=== PATIENT | female | born 1995 | race Caucasian/White ===

== ENCOUNTER 2017-02-14 23:25 | Emergency (ER) | payer OTHER ==
[~2017-02-14] VITALS: Ht 160 cm; Wt 49.9 kg
[~2017-02-14 23:25] MED LIST: BENTYL20 MG PO; CIPRO500 MG PO; MACROBID100 MG PO; MOTRIN600 MG PO; OXYCODONE-ACET1 EACH PO; PHENERGAN25 MG PR; PROZAC WEEKLY 990 MG PO; RAPAFLO4 MG PO; REGLAN10 MG PO; VICODIN 5-3001 EACH PO; ZOFRAN4 MG PO; ZOLOFT50 MG PO
[2017-02-15 00:19] LABS: HEMATOCRIT 41.6 % (36.0-46.0); MCH 30.1 PG (29.0-34.0); MCHC 33.4 G/DL (30.0-36.0); MEAN PLAT.VOLUME 9.8 uM^3 (9.5-12.4); PLATELET COUNT 293 K/uL (156-360); RBC DIS.WIDTH-CV 12.8 % (11.8-14.6); RBC DIS.WIDTH-SD 42.2 % (39-53); RED BLOOD COUNT 4.62 M/uL (3.80-5.20); WHITE BLOOD COUNT 8.1 K/uL (4.1-10.2)
[2017-02-15 00:22] LABS: CHLORIDE 109 mEq/L (99-109); POTASSIUM 3.9 mEq/L (3.7-5.4); SODIUM 142 mEq/L (136-147)
[2017-02-15 00:23] LABS: GLUCOSE 119 mg/dL (70-99)
[2017-02-15 00:25] LABS: ANION GAP 10 MEQ/L (2-14)
[2017-02-15 00:27] LABS: GFR ESTIMATE (CALCULATED) > 59 mL/min/
[2017-02-15 00:28] LABS: UREA NITROGEN (BUN) 13 mg/dL (9-23)
[2017-02-15 00:57] LABS: ADD MIUA? YES; BILIRUBIN NEGATIVE; BLOOD NEGATIVE; COLOR YELLOW ((YELLOW)); GLUCOSE (STRIP) NEGATIVE; KETONES 20; LEUKOCYTES NEGATIVE; NITRITE NEGATIVE; PROTEIN (STRIP) 100; SPECIFIC GRAVITY 1.021 (1.000-1.030); UROBILINOGEN 0.2 MG/DL (0.2-1.0)
[2017-02-15 00:58] LABS: QUANTITATIVE HCG < 4.0 MIU/ML
[2017-02-15] MEDS ORDERED: PERCOCET 5/31 TABLET PO (01:20)
[2017-02-15 01:22] LABS: CRYSTALS PRESENT; EPITHELIAL CELLS 2+ /HPF; MUCUS NONE SEEN /LPF; UCUL ADDED? NO; WHITE BLOOD CELLS 0-5 /HPF (0-5)
[2017-02-15 01:23] LABS: AMORPHOUS PHOSPHATE CRYSTALS 3+
[2017-02-15 02:03] VITALS: BP 135/79
== END 2017-02-15 02:12 | disposition home or self-care (01) ==
LOC: EME 23:25
DX: N13.2 Hydronephrosis with renal and ureteral calculous obstruction (principal); Z88.1 Allergy status to other antibiotic agents; Z72.0 Tobacco use
CPT/HCPCS: 74176; 80048; 81003; 84702; 85027; 99281; 99285; J1885; J2270; J2405; J7030

== ENCOUNTER → 2017-11-10 | Outpatient (CLI) | payer OTHER ==
[~2017-11-10] VITALS: Ht 162.6 cm; Wt 61.4 kg
[~2017-11-10] MED LIST changes: +PERCOCET 5/31 TABLET PO
[2017-11-10 11:16] VITALS: BP 135/83
== END | disposition home or self-care (01) ==
LOC: IVINF 11:00
DX: Z31.82 Encounter for Rh incompatibility status (principal); Z3A.28 28 weeks gestation of pregnancy; Z67.11 Type A blood, Rh negative
CPT/HCPCS: 96372; J2790

== ENCOUNTER 2018-01-06 00:29 | Inpatient (IN) | payer OTHER ==
[2018-01-06] VITALS (20 sets, daily range): BP systolic 93–145; BP diastolic 51–85
[~2018-01-06] VITALS: Ht 160 cm; Wt 65.9 kg
[2018-01-06 01:33] LABS: BASOPHIL (%) 0.4 % (0-1); BASOPHIL COUNT 0.1 K/uL (0-0.1); EOSINOPHIL (%) 2.3 % (0-5); EOSINOPHIL COUNT 0.3 K/uL (0-0.3); HEMATOCRIT 41.6 % (36.0-46.0); HEMOGLOBIN 14.1 G/DL (11.9-15.5); IMMATURE GRANULOCYTE (%) 1.8 % (0.0-0.7); LYMPHOCYTE (%) 20.1 % (15-42); LYMPHOCYTE COUNT 2.9 K/uL (1.0-2.8); MCH 31.2 PG (29.0-34.0); MCHC 33.9 G/DL (30.0-36.0); MONOCYTE (%) 9.4 % (3-12); MONOCYTE COUNT 1.3 K/uL (0-0.8); NEUTROPHIL COUNT 9.4 K/uL (1.8-6.4); PLATELET COUNT 301 K/uL (156-360); RBC DIS.WIDTH-CV 12.7 % (11.8-14.6); RBC DIS.WIDTH-SD 42.6 % (39-53); RED BLOOD COUNT 4.52 M/uL (3.80-5.20); WHITE BLOOD COUNT 14.2 K/uL (4.1-10.2)
[2018-01-06] MEDS ORDERED: PRENATAL GUMMI1 EACH PO (01:54)
[2018-01-06 03:02] LABS: COCAINE NEGATIVE (150 ng/mL); METHAMPHETAMINE NEGATIVE (500 ng/mL); OPIATES (MORPHINE) NEGATIVE (100 ng/mL); PHENCYCLIDINE NEGATIVE (25 ng/mL); THC CANNABINOIDS NEGATIVE (50 ng/mL)
[2018-01-06 03:03] LABS: AMPHETAMINE NEGATIVE (500 ng/mL); BARBITURATES NEGATIVE (200 ng/mL); BENZODIAZEPINES NEGATIVE (150 ng/mL); BUPRENORPHINE NEGATIVE (10 ng/mL); METHADONE NEGATIVE (200 ng/mL); OXYCODONE NEGATIVE (100 ng/mL); PROPOXYPHENE NEGATIVE (300 ng/mL); TRICYCLIC ANTIDEPRESSANTS NEGATIVE (300 ng/mL)
[2018-01-06] MEDS ORDERED: IBUPROFEN800 MG PO (10:52)
== END 2018-01-08 14:12 | disposition home or self-care (01) | DRG 775 ==
LOC: LDRP-OP 00:29 → 2WEST 00:30 → LDRP-OP 03-30 16:21
PROVIDERS: Advanced Practice Midwife
DX: O60.14X1 Preterm labor third trimester with preterm delivery third trimester, fetus 1 (principal); O99.354 Diseases of the nervous system complicating childbirth; O99.324 Drug use complicating childbirth; O71.4 Obstetric high vaginal laceration alone; O99.824 Streptococcus B carrier state complicating childbirth; Z37.0 Single live birth; Z3A.36 36 weeks gestation of pregnancy; F31.9 Bipolar disorder, unspecified; F41.9 Anxiety disorder, unspecified; G43.909 Migraine, unspecified, not intractable, without status migrainosus; O99.344 Other mental disorders complicating childbirth; Z87.442 Personal history of urinary calculi; F12.90 Cannabis use, unspecified, uncomplicated
CPT/HCPCS: 83030; 85025; 86850; 86870; 86900; 86901; C1755; J2540; J2790; J3010; J7120